=== PATIENT | female | born 1995 | race American Indian/Alaskan Native ===

== ENCOUNTER 2017-12-14 07:56 | Emergency (ER) | payer SELFPAY ==
[2017-12-14 08:47] LABS: INR 0.94 (0.87-1.13)
--- NOTE | 2017-12-14 13:50 | Emergency Department Report ---
ED Extremity Problem HPI - General Chief complaint: Extremity Problem,Nontraumatic Stated complaint: LEG BRUISE Time Seen by Provider: 12/14/17 13:31 Source: patient Mode of arrival: Ambulatory Limitations: No Limitations - History of Present Illness Initial comments: Patient is a 21-year-old asthmatic female who states she is as follows house doing her hair and sitting in a chair. Patient feels as though something bit her on the bilateral thighs. Patient has silver dollar sized areas that haven' t well on the lateral posterior thighs. MD Complaint: extremity pain, extremity swelling -: days(s) (2) Location: bilateral lower extremity History of Same: No Severity scale (0 -10): 5 Quality: aching Consistency: constant Improves with: nothing Worsens with: walking, palpation Associated Symptoms: denies: chest pain, shortness of breath, fever, myalgias, arthralgias, rash - Related Data Previous Rx's Medication Instructions Recorded Last Taken Type ALBUTEROL Inhaler [ProAir HFA 1 puff IH Q4-6H #1 inha 07/29/13 Unknown Rx Inhaler] Azithromycin [Zithromax Z-MAL] 250 mg PO DAILY #6 tab 07/29/13 Unknown Rx predniSONE [Deltasone] 1 tab PO BID #8 tablet 07/29/13 Unknown Rx Ibuprofen [Motrin] 600 mg PO Q8H PRN #20 tablet 12/14/17 Unknown Rx Sulfamethoxazole/Trimethoprim 1 each PO BID #14 tablet 12/14/17 Unknown Rx [Bactrim DS TAB] traMADol [Ultram] 50 mg PO Q6HR PRN #12 tablet 12/14/17 Unknown Rx Allergies Allergy/AdvReac Type Severity Reaction Status Date / Time No Known Allergies Allergy Unverified 07/29/13 07:19 ED Review of Systems ROS: Stated complaint: LEG BRUISE Other details as noted in HPI Constitutional: denies: chills, fever Eyes: denies: eye pain, eye discharge, vision change ENT: denies: ear pain, throat pain Respiratory: denies: cough, shortness of breath, wheezing Cardiovascular: denies: chest pain, palpitations Endocrine: no symptoms reported Gastrointestinal: denies: abdominal pain, nausea, diarrhea Genitourinary: denies: urgency, dysuria, discharge Musculoskeletal: denies: back pain, joint swelling, arthralgia Skin: rash. denies: lesions Neurological: denies: headache, weakness, paresthesias Psychiatric: denies: anxiety, depression Hematological/Lymphatic: denies: easy bleeding, easy bruising ED Past Medical Hx - Past Medical History Hx Asthma: Yes - Surgical History Past Surgical History?: No - Social History Smoking Status: Never Smoker Substance Use Type: None - Medications Home Medications: Home Medications Medication Instructions Recorded Confirmed Last Taken Type ALBUTEROL Inhaler [ProAir HFA 1 puff IH Q4-6H #1 inha 07/29/13 Unknown Rx Inhaler] Azithromycin [Zithromax Z-MAL] 250 mg PO DAILY #6 tab 07/29/13 Unknown Rx predniSONE [Deltasone] 1 tab PO BID #8 tablet 07/29/13 Unknown Rx Ibuprofen [Motrin] 600 mg PO Q8H PRN #20 tablet 12/14/17 Unknown Rx Sulfamethoxazole/Trimethoprim 1 each PO BID #14 tablet 12/14/17 Unknown Rx [Bactrim DS TAB] traMADol [Ultram] 50 mg PO Q6HR PRN #12 tablet 12/14/17 Unknown Rx ED Physical Exam - General Limitations: No Limitations General appearance: alert, in no apparent distress - Head Head exam: Present: atraumatic, normocephalic - Eye Eye exam: Present: normal appearance - ENT ENT exam: Present: mucous membranes moist - Neck Neck exam: Present: normal inspection - Respiratory Respiratory exam: Present: normal lung sounds bilaterally. Absent: respiratory distress - Cardiovascular Cardiovascular Exam: Present: regular rate, normal rhythm. Absent: systolic murmur, diastolic murmur, rubs, gallop - GI/Abdominal GI/Abdominal exam: Present: soft, normal bowel sounds - Extremities Exam Extremities exam: Present: normal inspection - Back Exam Back exam: Present: normal inspection - Neurological Exam Neurological exam: Present: alert, oriented X3 - Psychiatric Psychiatric exam: Present: normal affect, normal mood - Skin Skin exam: Present: warm, dry, intact, normal color, other (patient has bilateral posterior lateral thigh lesions. The lesions are erythematous indurated around proximally so her dollar size. These most consistent with possible insect bites with cellulitis). Absent: rash ED Course Vital Signs 12/14/17 08:17 Temperature 98 F Pulse Rate 94 H Respiratory 16 Rate Blood Pressure 98/66 O2 Sat by Pulse 95 Oximetry ED Medical Decision Making - Medical Decision Making pt to be started on abx and dc'd home Critical care attestation.: If time is entered above; I have spent that time in minutes in the direct care of this critically ill patient, excluding procedure time. ED Disposition Clinical Impression: Cellulitis Qualifiers: Site of cellulitis: unspecified site Qualified Code(s): L03.90 - Cellulitis, unspecified Disposition: DC TO HOME OR SELFCARE Is pt being admited?: No Does the pt Need Aspirin: No Condition: Stable Instructions: Cellulitis (ED) Prescriptions: Ibuprofen [Motrin] 600 mg PO Q8H PRN #20 tablet PRN Reason: Pain Sulfamethoxazole/Trimethoprim [Bactrim DS TAB] 1 each PO BID #14 tablet traMADol [Ultram] 50 mg PO Q6HR PRN #12 tablet PRN Reason: Pain Referrals: PRIMARY CARE, [Primary Care Provider] - 3-5 Days
[2017-12-14 13:58] VITALS: BP 100/59
== END 2017-12-14 14:16 | disposition home or self-care (01) ==
LOC: ED 07:56
DX: L03.116 Cellulitis of left lower limb (principal); L03.115 Cellulitis of right lower limb; J45.909 Unspecified asthma, uncomplicated
CPT/HCPCS: 36415; 84703; 85379; 85610; 85730; 93970